=== PATIENT | female | born 1995 | race Two or more races ===

== ENCOUNTER 2017-11-20 10:15 | Emergency (ER) | payer OTHER ==
[2017-11-20] MEDS ORDERED: Sodium Chloride 0.9% 1,000 ML IV ONE (10:42)
[2017-11-20] MEDS ORDERED: Ondansetron 4 MG/2 ML SDV IVPUSH ONE (10:42)
[2017-11-20] MEDS ORDERED: Ketorolac 30 MG/ML SDV IVPUSH ONE (10:42)
--- NOTE | 2017-11-20 10:48 | EDM.PDOC ---
ED HPI GENERAL MEDICAL PROBLEM - General Chief Complaint: Abdominal Pain Stated Complaint: ABDOMINAL PAIN Time Seen by Provider: 11/20/17 10:23 Source of Information: Reports: Patient History Limitations: Reports: No Limitations - History of Present Illness INITIAL COMMENTS - FREE TEXT/NARRATIVE: HISTORY AND PHYSICAL: History of present illness: Patient is a 21-year-old female who presents to the emergency room today with complaints of right lower quadrant pain last night. She states last night it was mild and has progressively gotten more intense. She denies any associated symptoms such as nausea, vomiting, diarrhea or constipation. Last bowel movement this morning, normal. She denies any dysuria. Denies any vaginal bleeding, discharge, lesions or concerns. Last menstrual period was 10/27/2017, dates they have been regular. 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 Denies any chance of . Review of systems: As per history of present illness and below otherwise all systems reviewed and negative. Past medical history: As per history of present illness and as reviewed below otherwise noncontributory. Surgical history: As per history of present illness and as reviewed below otherwise noncontributory. Social history: No reported history of drug or alcohol abuse. Family history: As per history of present illness and as reviewed below otherwise noncontributory. Physical exam: Neural: Well-developed and well-nourished 21-year-old female. Alert and oriented. Nontoxic appearing and in no acute distress. HEENT: Atraumatic, normocephalic, pupils reactive, negative for conjunctival pallor or scleral icterus, mucous membranes moist, throat clear, neck supple, nontender, trachea midline. Lungs: Clear to auscultation, breath sounds equal bilaterally, chest nontender. Heart: S1S2, regular, negative for clicks, rubs, or JVD. Abdomen: Soft, nondistended, mild tenderness to the left lower quadrant with right lower quadrant tenderness with no rebound tenderness. Negative for masses or hepatosplenomegaly. Negative for costovertebral tenderness. Pelvis: Stable nontender. Genitourinary: Deferred. Rectal: Deferred. Extremities: Atraumatic, moves all extremities per self without difficulty or deficits, negative for cords or calf pain. Neurovascular unremarkable. Neuro: Awake, alert, oriented. Cranial nerves II through XII unremarkable. Cerebellum unremarkable. Motor and sensory unremarkable throughout. Exam nonfocal. Diagnostics: CBC, CMP, UA, urine , CT abdomen and pelvis Therapeutics: IV fluid, Zofran, Toradol Impression: Abdominal pain Ovarian Cyst Plan: 1. Please take ibuprofen as directed. Gentle warm heat packs may be beneficial and alleviate discomfort. Zofran 4mg ODT as needed for nausea. Tramadol as needed for severe pain, may cause drowsiness - so do not take while driving or needing to be functioning outside the house. 2. Follow-up with an REWIND OPERATOR for further management. Return to the ED as needed and as discussed. Definitive disposition and diagnosis as appropriate pending reevaluation and review of above. Right Lower Abdominal Pain Score (Numeric/FACES): 8 - Related Data Allergies Allergy/AdvReac Type Severity Reaction Status Date / Time No Known Allergies Allergy Verified 11/20/17 10:36 Home Meds: Home Meds . [No Known Home Meds] 11/20/17 [History] Past Medical History - Past Health History Medical/Surgical History: Denies Medical/Surgical History Social & Family History - Family History Family Medical History: Noncontributory - Tobacco Use Smoking Status *Q: Never Smoker - Recreational Drug Use Recreational Drug Use: No ED ROS GENERAL - Review of Systems Review Of Systems: ROS reveals no pertinent complaints other than HPI. ED EXAM, GI/ABD - Physical Exam Exam: See Below (See dictation) Course - Vital Signs Last Recorded V/S: Last Vital Signs Temp 98.7 F 11/20/17 13:12 Pulse 72 11/20/17 13:12 Resp 16 11/20/17 13:12 BP 121/67 11/20/17 13:12 Pulse Ox 100 11/20/17 13:12 - Orders/Labs/Meds Orders: Active Orders 24 hr Category Date Time Status Abdomen Pelvis w Cont [CT] Stat Exams 11/20/17 10:41 Taken CULTURE URINE [RM] Stat Lab 11/20/17 12:23 Received Labs: Laboratory Tests 11/20/17 11/20/17 11/20/17 Range/Units 10:35 10:35 10:35 WBC 5.21 (4.0-11.0) K/uL RBC 4.27 L (4.30-5.90) M/uL Hgb 13.7 (12.0-16.0) g/dL Hct 40.1 (36.0-46.0) % MCV 93.9 (80.0-98.0) fL MCH 32.1 H (27.0-32.0) pg MCHC 34.2 (31.0-37.0) g/dL RDW Std Deviation 46.2 (28.0-62.0) fl RDW Coeff of Shiva 14 (11.0-15.0) % Plt Count 147 L (150-400) K/uL MPV 10.10 (7.40-12.00) fL Neut % (Auto) 49.5 (48.0-80.0) % Lymph % (Auto) 41.1 H (16.0-40.0) % [place] % (Auto) 6.5 (0.0-15.0) % Eos % (Auto) 2.7 (0.0-7.0) % Baso % (Auto) 0.2 (0.0-1.5) % Neut # (Auto) 2.6 (1.4-5.7) K/uL Lymph # (Auto) 2.1 (0.6-2.4) K/uL [place] # (Auto) 0.3 (0.0-0.8) K/uL Eos # (Auto) 0.1 (0.0-0.7) K/uL Baso # (Auto) 0.0 (0.0-0.1) K/uL Nucleated RBC % 0.0 /100WBC Nucleated RBCs # 0 K/uL Sodium 140 (136-145) mmol/L Potassium 4.0 (3.5-5.1) mmol/L Chloride 108 H (98-107) mmol/L Carbon Dioxide 24.1 (21.0-32.0) mmol/L BUN 13 (7.0-18.0) mg/dL Creatinine 0.7 (0.6-1.0) mg/dL Est Cr Clr Drug Dosing 121.01 mL/min Estimated GFR (MDRD) > 60.0 ml/min Glucose 88 (74-106) mg/dL Calcium 8.7 (8.5-10.1) mg/dL Total Bilirubin 0.5 (0.2-1.0) mg/dL AST 15 (15-37) IU/L ALT 15 (14-63) IU/L Alkaline Phosphatase 59 (46-116) U/L Total Protein 6.8 (6.4-8.2) g/dL Albumin 3.8 (3.4-5.0) g/dL Globulin 3.0 (2.0-3.5) g/dL Albumin/Globulin Ratio 1.3 (1.3-2.8) HCG, Qual NEGATIVE (NEG) Urine Color Urine Appearance Urine pH (5.0-8.0) Ur Specific [place] (1.001-1.035) Urine Protein (NEGATIVE) mg/dL Urine Glucose (UA) (NEGATIVE) mg/dL Urine Ketones (NEGATIVE) mg/dL Urine Occult Blood (NEGATIVE) Urine Nitrite (NEGATIVE) Urine Bilirubin (NEGATIVE) Urine Urobilinogen (<2.0) EU/dL Ur Leukocyte Esterase (NEGATIVE) Urine RBC (0-2/HPF) Urine WBC (0-5/HPF) Ur Epithelial Cells (NONE-FEW) Urine Bacteria (NEGATIVE) 11/20/17 Range/Units 12:23 WBC (4.0-11.0) K/uL RBC (4.30-5.90) M/uL Hgb (12.0-16.0) g/dL Hct (36.0-46.0) % MCV (80.0-98.0) fL MCH (27.0-32.0) pg MCHC (31.0-37.0) g/dL RDW Std Deviation (28.0-62.0) fl RDW Coeff of Shiva (11.0-15.0) % Plt Count (150-400) K/uL MPV (7.40-12.00) fL Neut % (Auto) (48.0-80.0) % Lymph % (Auto) (16.0-40.0) % [place] % (Auto) (0.0-15.0) % Eos % (Auto) (0.0-7.0) % Baso % (Auto) (0.0-1.5) % Neut # (Auto) (1.4-5.7) K/uL Lymph # (Auto) (0.6-2.4) K/uL [place] # (Auto) (0.0-0.8) K/uL Eos # (Auto) (0.0-0.7) K/uL Baso # (Auto) (0.0-0.1) K/uL Nucleated RBC % /100WBC Nucleated RBCs # K/uL Sodium (136-145) mmol/L Potassium (3.5-5.1) mmol/L Chloride (98-107) mmol/L Carbon Dioxide (21.0-32.0) mmol/L BUN (7.0-18.0) mg/dL Creatinine (0.6-1.0) mg/dL Est Cr Clr Drug Dosing mL/min Estimated GFR (MDRD) ml/min Glucose (74-106) mg/dL Calcium (8.5-10.1) mg/dL Total Bilirubin (0.2-1.0) mg/dL AST (15-37) IU/L ALT (14-63) IU/L Alkaline Phosphatase (46-116) U/L Total Protein (6.4-8.2) g/dL Albumin (3.4-5.0) g/dL Globulin (2.0-3.5) g/dL Albumin/Globulin Ratio (1.3-2.8) HCG, Qual (NEG) Urine Color YELLOW Urine Appearance CLEAR Urine pH 7.0 (5.0-8.0) Ur Specific [place] 1.020 (1.001-1.035) Urine Protein NEGATIVE (NEGATIVE) mg/dL Urine Glucose (UA) NEGATIVE (NEGATIVE) mg/dL Urine Ketones NEGATIVE (NEGATIVE) mg/dL Urine Occult Blood NEGATIVE (NEGATIVE) Urine Nitrite NEGATIVE (NEGATIVE) Urine Bilirubin NEGATIVE (NEGATIVE) Urine Urobilinogen 0.2 (<2.0) EU/dL Ur Leukocyte Esterase NEGATIVE (NEGATIVE) Urine RBC 0-1 (0-2/HPF) Urine WBC 0-1 (0-5/HPF) Ur Epithelial Cells FEW (NONE-FEW) Urine Bacteria FEW (NEGATIVE) Meds: Medications Discontinued Medications Generic Name Dose Route Start Last Admin Trade Name Freq PRN Reason Stop Dose Admin Sodium Chloride 1,000 mls @ 999 mls/hr 11/20/17 10:42 11/20/17 11:17 Normal Saline IV 11/20/17 11:42 999 mls/hr STAT ONE Administration Iopamidol 75 ml 11/20/17 12:35 11/20/17 12:36 Isovue Multipack-370 (76%) IVPUSH 11/20/17 12:36 75 ml ONETIME STA Administration Ketorolac Tromethamine 30 mg 11/20/17 10:42 11/20/17 11:22 Toradol IVPUSH 11/20/17 10:43 30 mg ONETIME ONE Administration Ondansetron HCl 4 mg 11/20/17 10:42 11/20/17 11:19 Zofran IVPUSH 11/20/17 10:43 4 mg ONETIME ONE Administration Departure - Departure Time of Disposition: 13:50 Disposition: Home, Self-Care 01 Clinical Impression: Ovarian cyst Qualifiers: Laterality: right Qualified Code(s): N83.201 - Unspecified ovarian cyst, right side - Discharge Information Instructions: Ovarian Cyst, [id number] Referrals: PCP,None [Primary Care Provider] - Forms: ED Department Discharge Additional Instructions: My general discharge The following information is given to patients seen in the emergency department who are being discharged to home. This information is to outline your options for follow-up care. We provide all patients seen in our emergency department with a follow-up referral. The need for follow-up, as well as the timing and circumstances, are variable depending upon the specifics of your emergency department visit. If you don't have a primary care physician on staff, we will provide you with a referral. We always advise you to contact your personal physician following an emergency department visit to inform them of the circumstance of the visit and for follow-up with them and/or the need for any referrals to a consulting specialist. The emergency department will also refer you to a specialist when appropriate. This referral assures that you have the opportunity for follow-up care with a specialist. All of these measure are taken in an effort to provide you with optimal care, which includes your follow-up. Under all circumstances we always encourage you to contact your private physician who remains a resource for coordinating your care. When calling for follow-up care, please make the office aware that this follow-up is from your recent emergency room visit. If for any reason you are refused follow-up, please contact the [facility] Emergency Department at and asked to speak to the emergency department charge nurse. [facility] Primary Care - Women's Health [address] [place] [id number] [facility] [address] [place] [address] . Please take ibuprofen as directed. Gentle warm heat packs may be beneficial and alleviate discomfort. Zofran 4mg ODT as needed for nausea. Tramadol as needed for severe pain, may cause drowsiness - so do not take while driving or needing to be functioning outside the house. 2. Follow-up with an REWIND OPERATOR for further management. Return to the ED as needed and as discussed. - My Orders Last 24 Hours: My Active Orders 11/20/17 10:41 Abdomen Pelvis w Cont [CT] Stat 11/20/17 12:23 CULTURE URINE [RM] Stat - Assessment/Plan Last 24 Hours: My Active Orders 11/20/17 10:41 Abdomen Pelvis w Cont [CT] Stat 11/20/17 12:23 CULTURE URINE [RM] Stat
[2017-11-20 11:21] LABS: CHLORIDE,CL 108 mmol/L (98-107); SODIUM,NA 140 mmol/L (136-145)
[2017-11-20] MEDS ORDERED: Iopamidol 755 MG/ML 500 ML Multipack Bottle IVPUSH STA (12:35)
--- NOTE | 2017-11-20 14:17 | CT ---
EXAM DATE: 11/20/17 PATIENT'S AGE: 21 Patient: GAMA JIN Facility: [place], [place] Site . Site : 1995 Study: CT Abdomen/Pelvis [id number]/[id number] 12:41:21 PM Ordering Physician: Doctor Woodward Final Report: INDICATION: abd pain HISTORY: Abdominal pain. COMPARISON: None. TECHNIQUE: CT of the abdomen and pelvis. 75 cc of Isovue-370 IV. Coronal/sagittal reconstruction images. FINDINGS: Lung bases: There is no pleural or pericardial effusion. The heart size is normal. There is respiratory motion artifact, which limits image quality at the lung bases. There is no basilar pneumothorax. Abdomen/pelvis: Motion artifact also limits image quality in the abdomen. There is no solid hepatic mass. The hepatic morphology is normal. There is no dilation of intrahepatic biliary radicals. Spleen size is normal. No hydronephrosis. No perinephric edema. No adrenal mass. No pancreatic mass or pancreatic duct dilation. Urinary bladder is normal. There is a low-density right adnexal mass, which measures 3.5 cm in dimension. This is most likely an intra-ovarian follicular cyst, but is indeterminate. If there is concern, ultrasound may be obtained to further assess. There is a moderate amount of colonic fecal material. There is no transition point to indicate a mechanical small bowel or colonic obstruction. Questionable visualization of the appendix on series 201, image 76. No secondary signs for appendicitis. No appendicolith or wall thickening within the cecum. No abdominal aortic aneurysm. The visceral artery branches are patent. There is no adenopathy by size criteria in the pelvis, retroperitoneum, gastrohepatic ligament. The bone windows demonstrate no lytic or blastic bone lesions. The alignment is preserved. On sagittal reconstruction images, vertebral body heights alignment are maintained. IMPRESSION: 1. Significant patient motion artifact limits the image quality. 2. Questionable appendiceal visualization. There are no secondary signs for appendicitis. No cecal wall thickening or calcified appendicolith. 3. Suspected right intra-ovarian follicular cyst. Trace amount of free fluid in the pelvis. This may be confirmed with ultrasonography. 4. Report called to Dr. Jenkins, emergency department, 11/20/2017, 1336 hours. Dictated by Tristian Chance MD @ 11/20/2017 1:36:56 PM Dictated by: Tristian Chance MD @ 11/20/2017 13:37:06 (Electronic Signature) Report Signed by Proxy. KLEVER
== END 2017-11-20 14:10 | disposition home or self-care (01) ==
LOC: MW.ED 10:15
DX: N83.201 Unspecified ovarian cyst, right side (principal)
CPT/HCPCS: 36415; 74177; 80053; 81001; 84703; 85025; 87086; 96361; 96374; 96375; 99284; J1885; J2405; J7040; Q9967; 99283

== ENCOUNTER 2017-11-30 12:13 | Emergency (ER) | payer OTHER ==
--- NOTE | 2017-11-30 12:18 | EDM.PDOC ---
ED HPI GENERAL MEDICAL PROBLEM - General Stated Complaint: ABD PAIN Time Seen by Provider: 11/30/17 12:17 Source of Information: Reports: Patient History Limitations: Reports: No Limitations - History of Present Illness INITIAL COMMENTS - FREE TEXT/NARRATIVE: HISTORY AND PHYSICAL: History of present illness: [. Patient is a 21-year-old female here with abdominal pain 10 days. She was seen in the ED 10 day ago for right lower abdominal pain found to have a right ovarian cyst on CT scan. She states that she started her menstrual cycle today, she is not having diffuse lower abdominal pain. She denies any fevers, nausea, vomiting, diarrhea, bowel movements have been normal.] Review of systems: As per history of present illness and below otherwise all systems reviewed and negative. Past medical history: As per history of present illness and as reviewed below otherwise noncontributory. Surgical history: As per history of present illness and as reviewed below otherwise noncontributory. Social history: No reported history of drug or alcohol abuse. Family history: As per history of present illness and as reviewed below otherwise noncontributory. Physical exam: HEENT: Atraumatic, normocephalic, pupils reactive, negative for conjunctival pallor or scleral icterus, mucous membranes moist, throat clear, neck supple, nontender, trachea midline. Lungs: Clear to auscultation, breath sounds equal bilaterally, chest nontender. Heart: S1S2, regular, negative for clicks, rubs, or JVD. Abdomen: Soft, nondistended, moderate tenderness to palpation of lower abdomen. Negative obturator and psoas sign. Negative for masses or hepatosplenomegaly. Negative for costovertebral tenderness. Pelvis: Stable nontender. Genitourinary: Deferred. Rectal: Deferred. Extremities: Atraumatic, negative for cords or calf pain. Neurovascular unremarkable. Neuro: Awake, alert, oriented. Cranial nerves II through XII unremarkable. Cerebellum unremarkable. Motor and sensory unremarkable throughout. Exam nonfocal. Notes: 11/20/2017 she was evaluated in the ED for abdominal pain. She was diagnosed with an ovarian cyst and given a prescription for Zofran and tramadol. Patient reported pain 9/10, Toradol given. Pain 3/10 after Toradol. Diagnostics: [CBC, CMP, UA, urine hCG, pelvic ultrasound Therapeutics: [Normal saline IV Toradol 30 mg IV] Impression: [Dysmenorrhea] Plan: CBC and CMP are unremarkable. Urine hCG is negative. UA is unremarkable for urinary tract infection, hematuria present due to patient currently being on her menstrual cycle. Pelvic ultrasound is unremarkable for ovarian cyst. [#1 Take ibuprofen as needed as discussed for menstrual cramping. #2 follow-up with your SPANISHER. #3 return to ED as needed as discussed] Definitive disposition and diagnosis as appropriate pending reevaluation and review of above. Right Middle Abdomen Pain Score (Numeric/FACES): 10 - Related Data Allergies Allergy/AdvReac Type Severity Reaction Status Date / Time No Known Allergies Allergy Verified 11/20/17 10:36 Home Meds: Home Meds traMADol HCl [Tramadol HCl] 50 mg PO Q4H PRN 11/30/17 [History] Past Medical History - Past Health History Medical/Surgical History: Denies Medical/Surgical History Social & Family History - Family History Family Medical History: Noncontributory - Tobacco Use Smoking Status *Q: Never Smoker - Recreational Drug Use Recreational Drug Use: No ED ROS GENERAL - Review of Systems Review Of Systems: ROS reveals no pertinent complaints other than HPI. ED EXAM, GI/ABD - Physical Exam Exam: See Below (See dictation) Course - Vital Signs Last Recorded V/S: Last Vital Signs Temp 36.8 C 11/30/17 12:31 Pulse 67 11/30/17 13:00 Resp 18 11/30/17 13:00 BP 97/52 L 11/30/17 13:00 Pulse Ox 98 11/30/17 13:00 - Orders/Labs/Meds Orders: Active Orders 24 hr Category Date Time Status Abdomen Ltd [US] Stat Exams 11/30/17 12:24 Taken Pelvis Non OB Ltd [US] Stat Exams 11/30/17 12:26 Taken HCG QUALITATIVE,URINE [URCHEM] Stat Lab 11/30/17 12:50 Ordered UA W/MICROSCOPIC [URIN] Stat Lab 11/30/17 12:50 Ordered Labs: Laboratory Tests 11/30/17 11/30/17 11/30/17 Range/Units 12:33 12:33 12:50 WBC 4.86 (4.0-11.0) K/uL RBC 4.22 L (4.30-5.90) M/uL Hgb 13.2 (12.0-16.0) g/dL Hct 39.8 (36.0-46.0) % MCV 94.3 (80.0-98.0) fL MCH 31.3 (27.0-32.0) pg MCHC 33.2 (31.0-37.0) g/dL RDW Std Deviation 45.5 (28.0-62.0) fl RDW Coeff of Shiva 13 (11.0-15.0) % Plt Count 124 L (150-400) K/uL MPV 10.00 (7.40-12.00) fL Neut % (Auto) 60.6 (48.0-80.0) % Lymph % (Auto) 30.7 (16.0-40.0) % [place] % (Auto) 6.4 (0.0-15.0) % Eos % (Auto) 2.1 (0.0-7.0) % Baso % (Auto) 0.2 (0.0-1.5) % Neut # (Auto) 3.0 (1.4-5.7) K/uL Lymph # (Auto) 1.5 (0.6-2.4) K/uL [place] # (Auto) 0.3 (0.0-0.8) K/uL Eos # (Auto) 0.1 (0.0-0.7) K/uL Baso # (Auto) 0.0 (0.0-0.1) K/uL Nucleated RBC % 0.0 /100WBC Nucleated RBCs # 0 K/uL Sodium 142 (136-145) mmol/L Potassium 3.9 (3.5-5.1) mmol/L Chloride 107 (98-107) mmol/L Carbon Dioxide 27.0 (21.0-32.0) mmol/L BUN 13 (7.0-18.0) mg/dL Creatinine 0.8 (0.6-1.0) mg/dL Est Cr Clr Drug Dosing 101.78 mL/min Estimated GFR (MDRD) > 60.0 ml/min Glucose 81 (74-106) mg/dL Calcium 8.5 (8.5-10.1) mg/dL Total Bilirubin 0.8 (0.2-1.0) mg/dL AST 15 (15-37) IU/L ALT 17 (14-63) IU/L Alkaline Phosphatase 46 (46-116) U/L Total Protein 6.6 (6.4-8.2) g/dL Albumin 3.7 (3.4-5.0) g/dL Globulin 2.9 (2.0-3.5) g/dL Albumin/Globulin Ratio 1.3 (1.3-2.8) Lipase 104 (73-393) U/L Urine Color DARK YELLOW Urine Appearance CLOUDY Urine pH 7.0 (5.0-8.0) Ur Specific [place] 1.020 (1.001-1.035) Urine Protein TRACE (NEGATIVE) mg/dL Urine Glucose (UA) NEGATIVE (NEGATIVE) mg/dL Urine Ketones NEGATIVE (NEGATIVE) mg/dL Urine Occult Blood LARGE H (NEGATIVE) Urine Nitrite NEGATIVE (NEGATIVE) Urine Bilirubin NEGATIVE (NEGATIVE) Urine Urobilinogen 0.2 (<2.0) EU/dL Ur Leukocyte Esterase NEGATIVE (NEGATIVE) Urine RBC TOO NUMBEROUS TO CT H (0-2/HPF) Urine WBC 0-2 (0-5/HPF) Ur Epithelial Cells FEW (NONE-FEW) Amorphous Sediment RARE (NEGATIVE) Urine Bacteria RARE (NEGATIVE) Urine HCG, Qual (NEGATIVE) 11/30/17 Range/Units 12:50 WBC (4.0-11.0) K/uL RBC (4.30-5.90) M/uL Hgb (12.0-16.0) g/dL Hct (36.0-46.0) % MCV (80.0-98.0) fL MCH (27.0-32.0) pg MCHC (31.0-37.0) g/dL RDW Std Deviation (28.0-62.0) fl RDW Coeff of Shiva (11.0-15.0) % Plt Count (150-400) K/uL MPV (7.40-12.00) fL Neut % (Auto) (48.0-80.0) % Lymph % (Auto) (16.0-40.0) % [place] % (Auto) (0.0-15.0) % Eos % (Auto) (0.0-7.0) % Baso % (Auto) (0.0-1.5) % Neut # (Auto) (1.4-5.7) K/uL Lymph # (Auto) (0.6-2.4) K/uL [place] # (Auto) (0.0-0.8) K/uL Eos # (Auto) (0.0-0.7) K/uL Baso # (Auto) (0.0-0.1) K/uL Nucleated RBC % /100WBC Nucleated RBCs # K/uL Sodium (136-145) mmol/L Potassium (3.5-5.1) mmol/L Chloride (98-107) mmol/L Carbon Dioxide (21.0-32.0) mmol/L BUN (7.0-18.0) mg/dL Creatinine (0.6-1.0) mg/dL Est Cr Clr Drug Dosing mL/min Estimated GFR (MDRD) ml/min Glucose (74-106) mg/dL Calcium (8.5-10.1) mg/dL Total Bilirubin (0.2-1.0) mg/dL AST (15-37) IU/L ALT (14-63) IU/L Alkaline Phosphatase (46-116) U/L Total Protein (6.4-8.2) g/dL Albumin (3.4-5.0) g/dL Globulin (2.0-3.5) g/dL Albumin/Globulin Ratio (1.3-2.8) Lipase (73-393) U/L Urine Color Urine Appearance Urine pH (5.0-8.0) Ur Specific [place] (1.001-1.035) Urine Protein (NEGATIVE) mg/dL Urine Glucose (UA) (NEGATIVE) mg/dL Urine Ketones (NEGATIVE) mg/dL Urine Occult Blood (NEGATIVE) Urine Nitrite (NEGATIVE) Urine Bilirubin (NEGATIVE) Urine Urobilinogen (<2.0) EU/dL Ur Leukocyte Esterase (NEGATIVE) Urine RBC (0-2/HPF) Urine WBC (0-5/HPF) Ur Epithelial Cells (NONE-FEW) Amorphous Sediment (NEGATIVE) Urine Bacteria (NEGATIVE) Urine HCG, Qual NEGATIVE (NEGATIVE) Meds: Medications Discontinued Medications Generic Name Dose Route Start Last Admin Trade Name Freq PRN Reason Stop Dose Admin Sodium Chloride 1,000 mls @ 999 mls/hr 11/30/17 12:26 11/30/17 13:01 Normal Saline IV 11/30/17 13:26 999 mls/hr STAT ONE Administration Ketorolac Tromethamine 30 mg 11/30/17 13:35 11/30/17 13:44 Toradol IM 11/30/17 13:36 Not Given ONETIME ONE Ketorolac Tromethamine 30 mg 11/30/17 13:37 11/30/17 13:43 Toradol IVPUSH 11/30/17 13:38 30 mg ONETIME ONE Administration Departure - Departure Time of Disposition: 14:02 Disposition: Home, Self-Care 01 Condition: Good Clinical Impression: Dysmenorrhea - Discharge Information Referrals: PCP,None [Primary Care Provider] - Additional Instructions: The following information is given to patients seen in the emergency department who are being discharged to home. This information is to outline your options for follow-up care. We provide all patients seen in our emergency department with a follow-up referral. The need for follow-up, as well as the timing and circumstances, are variable depending upon the specifics of your emergency department visit. If you don't have a primary care physician on staff, we will provide you with a referral. We always advise you to contact your personal physician following an emergency department visit to inform them of the circumstance of the visit and for follow-up with them and/or the need for any referrals to a consulting specialist. The emergency department will also refer you to a specialist when appropriate. This referral assures that you have the opportunity for follow-up care with a specialist. All of these measure are taken in an effort to provide you with optimal care, which includes your follow-up. Under all circumstances we always encourage you to contact your private physician who remains a resource for coordinating your care. When calling for follow-up care, please make the office aware that this follow-up is from your recent emergency room visit. If for any reason you are refused follow-up, please contact the [facility] Emergency Department at and asked to speak to the emergency department charge nurse. [facility] Primary Care [address] [place] [id number] #1 Take ibuprofen as needed as discussed for menstrual cramping. #2 follow-up with your SPANISHER. #3 return to ED as needed as discussed - My Orders Last 24 Hours: My Active Orders 11/30/17 12:24 Abdomen Ltd [US] Stat 11/30/17 12:26 Pelvis Non OB Ltd [US] Stat 11/30/17 12:50 HCG QUALITATIVE,URINE [URCHEM] Stat UA W/MICROSCOPIC [URIN] Stat - Assessment/Plan Last 24 Hours: My Active Orders 11/30/17 12:24 Abdomen Ltd [US] Stat 11/30/17 12:26 Pelvis Non OB Ltd [US] Stat 11/30/17 12:50 HCG QUALITATIVE,URINE [URCHEM] Stat UA W/MICROSCOPIC [URIN] Stat
[2017-11-30] MEDS ORDERED: Sodium Chloride 0.9% 1,000 ML IV ONE (12:26)
[2017-11-30 12:58] LABS: CHLORIDE,CL 107 mmol/L (98-107); SODIUM,NA 142 mmol/L (136-145)
[2017-11-30] MEDS ORDERED: Ketorolac 30 MG/ML SDV IM ONE (13:35)
[2017-11-30] MEDS ORDERED: Ketorolac 30 MG/ML SDV IVPUSH ONE (13:37)
--- NOTE | 2017-12-02 11:13 | US ---
EXAM DATE: 11/30/17 PATIENT'S AGE: 21 Patient: GAMA JIN Facility: [place], [place] Site . Site : 1997 Study: US Pelvis Bilateral -11/30/2017 1:42:21 PM Ordering Physician: Adarsh Herrera Final Report: INDICATION: Pelvic pain during menses; rule out appendicitis . Comparison: None. TECHNIQUE: Transabdominal pelvic ultrasound. FINDINGS: The uterus is measuring 8.6 x 3.8 x 4.6 cm. The right ovary is measuring 3.9 x 2.5 x 3.2 cm and the left ovary is measuring 3.6 x 2.7 x 2.8 cm. Endometrial stripe is measuring 8 mm in thickness with uniform and homogeneous echotexture. No free fluid in the cul-de-sac. The appendix is not clearly visualized in the right lower quadrant of the abdomen secondary to increased bowel peristalsis and body habitus. IMPRESSION: 1. Negative pelvic ultrasound. 2. The appendix is not clearly visualized. Dictated by Quincy Lopez MD @ Nov 30 2017 1:51PM (Electronic Signature) Report Signed by Proxy. KLEVER
--- NOTE | 2017-12-02 11:14 | US ---
EXAM DATE: 11/30/17 PATIENT'S AGE: 21 Patient: GAMA JIN Facility: [place], [place] Site . Site : 1997 Study: US Pelvis Bilateral -11/30/2017 1:42:21 PM Ordering Physician: Adarsh Herrera Final Report: INDICATION: Pelvic pain during menses; rule out appendicitis . Comparison: None. TECHNIQUE: Transabdominal pelvic ultrasound. FINDINGS: The uterus is measuring 8.6 x 3.8 x 4.6 cm. The right ovary is measuring 3.9 x 2.5 x 3.2 cm and the left ovary is measuring 3.6 x 2.7 x 2.8 cm. Endometrial stripe is measuring 8 mm in thickness with uniform and homogeneous echotexture. No free fluid in the cul-de-sac. The appendix is not clearly visualized in the right lower quadrant of the abdomen secondary to increased bowel peristalsis and body habitus. IMPRESSION: 1. Negative pelvic ultrasound. 2. The appendix is not clearly visualized. Dictated by Quincy Lopez MD @ Nov 30 2017 1:51PM (Electronic Signature) Report Signed by Proxy. KLEVER
== END 2017-11-30 14:15 | disposition home or self-care (01) ==
LOC: MW.ED 12:13
DX: N94.6 Dysmenorrhea, unspecified (principal)
CPT/HCPCS: 36415; 76705; 76857; 80053; 81001; 81025; 83690; 85025; 96361; 96374; 99284; J1885; J7040; 99283

== ENCOUNTER 2018-01-01 15:26 | Emergency (ER) | payer OTHER ==
[2018-01-01] MEDS ORDERED: Sodium Chloride 0.9% 1,000 ML IV ONE (15:46)
[2018-01-01] MEDS ORDERED: Ketorolac 30 MG/ML SDV IVPUSH ONE (15:46)
--- NOTE | 2018-01-01 16:01 | EDM.PDOC ---
ED HPI GENERAL MEDICAL PROBLEM - General Chief Complaint: Syncope Stated Complaint: DIZZY Time Seen by Provider: 01/01/18 15:46 Source of Information: Reports: Patient History Limitations: Reports: No Limitations - History of Present Illness INITIAL COMMENTS - FREE TEXT/NARRATIVE: HISTORY AND PHYSICAL: History of present illness: Patient is a 22-year-old female who presents to the emergency room with complaints of dizziness, syncopal event and abdominal pain. This has been an ongoing intermittent problem for the last several months and seems to be correlated with her menstrual period. He states she started menses this morning. Had feelings of weakness and dizziness along with abdominal cramping. States she was trying to go on with her day when she "passed out". Denies hitting her head or any injury related to this. Concerned as today's abdominal pain is worse that normal. She denies any fever, chills, chest pain, shortness of breath or cough. Denies any nausea, vomiting, diarrhea or constipation. Review of systems: As per history of present illness and below otherwise all systems reviewed and negative. Past medical history: As per history of present illness and as reviewed below otherwise noncontributory. Surgical history: As per history of present illness and as reviewed below otherwise noncontributory. Social history: No reported history of drug or alcohol abuse. Family history: As per history of present illness and as reviewed below otherwise noncontributory. Physical exam: General: All developed and well-nourished 22-year-old female. Alert and oriented. Nontoxic appearing and in no acute distress. HEENT: Atraumatic, normocephalic, pupils equal and reactive bilaterally, negative for conjunctival pallor or scleral icterus, mucous membranes moist, throat clear, neck supple, nontender, trachea midline. No drooling or trismus noted. No meningeal signs Lungs: Clear to auscultation, breath sounds equal bilaterally, chest nontender. Heart: S1S2, regular rate and rhythm without overt murmur Abdomen: Soft, nondistended, low abdominal pain and tenderness with palpation. Negative for masses or hepatosplenomegaly. Negative for costovertebral tenderness. Pelvis: Stable nontender. Genitourinary: Deferred. Rectal: Deferred. Skin: Intact, warm, dry. No lesions or rashes noted. Extremities: Atraumatic, negative for cords or calf pain. Neurovascular unremarkable. Neuro: Awake, alert, oriented. Cranial nerves II through XII unremarkable. Cerebellum unremarkable. Motor and sensory unremarkable throughout. Exam nonfocal. Notes: Patient was seen in the ER on 11/20 and 11/30/2017 for similar complaints: had labs and CT abdomen/pelvis and then a pelvic U/S. these were normal. She was encouraged to follow-up with an MANAGER LEAN. She states she did see a provider at the clinic who told her she was anemic. Lab work is unremarkable. I'm still waiting for the CT scan of the abdomen results. Patient is requesting that she be discharged to home. I did inform her of the pending CT results she would like to sign out AMA. Are stable. She is aware of risks of leaving prior to all results being returned. CT shows no acute abnormality area and moderate amount of stool. Nonspecific prominence of the intrahepatic biliary system. Diagnostics: CBC, CMP, UA, urine on the EKG, orthostatic vital signs Therapeutics: IV fluid, Toradol Impression: Abdominal pain Plan: Patient left AGAINST MEDICAL ADVICE prior to receiving all her diagnostic results. Definitive disposition and diagnosis as appropriate pending reevaluation and review of above. 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 [No Known Home Meds] 01/01/18 [History] Past Medical History - Past Health History Medical/Surgical History: Denies Medical/Surgical History Hematologic History: Reports: Anemia Social & Family History - Family History Family Medical History: Noncontributory - Tobacco Use Smoking Status *Q: Never Smoker Second Hand Smoke Exposure: No - Caffeine Use Caffeine Use: Reports: None - Recreational Drug Use Recreational Drug Use: No ED ROS GENERAL - Review of Systems Review Of Systems: ROS reveals no pertinent complaints other than HPI. ED EXAM, GENERAL - Physical Exam Exam: See Below (See dictation) Course - Vital Signs Last Recorded V/S: Last Vital Signs Temp 97.9 F 01/01/18 15:40 Pulse 71 01/01/18 17:13 Resp 15 05/02/18 17:13 BP 96/54 L 05/02/18 17:13 Pulse Ox 99 01/01/18 17:13 Orthostatic Blood Pressure [ 107/69 Standing] Orthostatic Blood Pressure [ 95/66 Sitting] Orthostatic Blood Pressure [ 99/58 Supine] - Orders/Labs/Meds Orders: Active Orders 24 hr Category Date Time Status Orthostatic Vital Signs [RC] ASDIRECTED Care 01/01/18 15:46 Active Abdomen Pelvis w Cont [CT] Stat Exams 01/01/18 16:02 Taken UA W/MICROSCOPIC [URIN] Stat Lab 01/01/18 17:40 Ordered Labs: Laboratory Tests 01/01/18 01/01/18 01/01/18 Range/Units 16:02 16:02 16:43 WBC 5.98 (4.0-11.0) K/uL RBC 3.95 L (4.30-5.90) M/uL Hgb 12.6 (12.0-16.0) g/dL Hct 36.7 (36.0-46.0) % MCV 92.9 (80.0-98.0) fL MCH 31.9 (27.0-32.0) pg MCHC 34.3 (31.0-37.0) g/dL RDW Std Deviation 43.6 (28.0-62.0) fl RDW Coeff of Shiva 13 (11.0-15.0) % Plt Count 132 L (150-400) K/uL MPV 9.90 (7.40-12.00) fL Neut % (Auto) 64.0 (48.0-80.0) % Lymph % (Auto) 28.3 (16.0-40.0) % [place] % (Auto) 6.5 (0.0-15.0) % Eos % (Auto) 1.0 (0.0-7.0) % Baso % (Auto) 0.2 (0.0-1.5) % Neut # (Auto) 3.8 (1.4-5.7) K/uL Lymph # (Auto) 1.7 (0.6-2.4) K/uL [place] # (Auto) 0.4 (0.0-0.8) K/uL Eos # (Auto) 0.1 (0.0-0.7) K/uL Baso # (Auto) 0.0 (0.0-0.1) K/uL Nucleated RBC % 0.0 /100WBC Nucleated RBCs # 0 K/uL Sodium 140 (136-145) mmol/L Potassium 3.9 (3.5-5.1) mmol/L Chloride 107 (98-107) mmol/L Carbon Dioxide 24.4 (21.0-32.0) mmol/L BUN 14 (7.0-18.0) mg/dL Creatinine 0.8 (0.6-1.0) mg/dL Est Cr Clr Drug Dosing 105.01 mL/min Estimated GFR (MDRD) > 60.0 ml/min Glucose 113 H (74-106) mg/dL Calcium 8.4 L (8.5-10.1) mg/dL Total Bilirubin 0.6 (0.2-1.0) mg/dL AST 15 (15-37) IU/L ALT 15 (14-63) IU/L Alkaline Phosphatase 44 L (46-116) U/L Total Protein 6.8 (6.4-8.2) g/dL Albumin 3.7 (3.4-5.0) g/dL Globulin 3.1 (2.0-3.5) g/dL Albumin/Globulin Ratio 1.2 L (1.3-2.8) HCG, Qual NEGATIVE (NEG) Urine Color Urine Appearance Urine pH (5.0-8.0) Ur Specific [place] (1.001-1.035) Urine Protein (NEGATIVE) mg/dL Urine Glucose (UA) (NEGATIVE) mg/dL Urine Ketones (NEGATIVE) mg/dL Urine Occult Blood (NEGATIVE) Urine Nitrite (NEGATIVE) Urine Bilirubin (NEGATIVE) Urine Urobilinogen (<2.0) EU/dL Ur Leukocyte Esterase (NEGATIVE) Urine RBC (0-2/HPF) Urine WBC (0-5/HPF) Ur Epithelial Cells (NONE-FEW) Urine Bacteria (NEGATIVE) 01/01/18 Range/Units 17:40 WBC (4.0-11.0) K/uL RBC (4.30-5.90) M/uL Hgb (12.0-16.0) g/dL Hct (36.0-46.0) % MCV (80.0-98.0) fL MCH (27.0-32.0) pg MCHC (31.0-37.0) g/dL RDW Std Deviation (28.0-62.0) fl RDW Coeff of Shiva (11.0-15.0) % Plt Count (150-400) K/uL MPV (7.40-12.00) fL Neut % (Auto) (48.0-80.0) % Lymph % (Auto) (16.0-40.0) % [place] % (Auto) (0.0-15.0) % Eos % (Auto) (0.0-7.0) % Baso % (Auto) (0.0-1.5) % Neut # (Auto) (1.4-5.7) K/uL Lymph # (Auto) (0.6-2.4) K/uL [place] # (Auto) (0.0-0.8) K/uL Eos # (Auto) (0.0-0.7) K/uL Baso # (Auto) (0.0-0.1) K/uL Nucleated RBC % /100WBC Nucleated RBCs # K/uL Sodium (136-145) mmol/L Potassium (3.5-5.1) mmol/L Chloride (98-107) mmol/L Carbon Dioxide (21.0-32.0) mmol/L BUN (7.0-18.0) mg/dL Creatinine (0.6-1.0) mg/dL Est Cr Clr Drug Dosing mL/min Estimated GFR (MDRD) ml/min Glucose (74-106) mg/dL Calcium (8.5-10.1) mg/dL Total Bilirubin (0.2-1.0) mg/dL AST (15-37) IU/L ALT (14-63) IU/L Alkaline Phosphatase (46-116) U/L Total Protein (6.4-8.2) g/dL Albumin (3.4-5.0) g/dL Globulin (2.0-3.5) g/dL Albumin/Globulin Ratio (1.3-2.8) HCG, Qual (NEG) Urine Color RED Urine Appearance SLT CLOUDY Urine pH 6.0 (5.0-8.0) Ur Specific [place] 1.015 (1.001-1.035) Urine Protein 30 (NEGATIVE) mg/dL Urine Glucose (UA) NEGATIVE (NEGATIVE) mg/dL Urine Ketones NEGATIVE (NEGATIVE) mg/dL Urine Occult Blood LARGE H (NEGATIVE) Urine Nitrite NEGATIVE (NEGATIVE) Urine Bilirubin NEGATIVE (NEGATIVE) Urine Urobilinogen 0.2 (<2.0) EU/dL Ur Leukocyte Esterase TRACE (NEGATIVE) Urine RBC TOO NUMBER (0-2/HPF) Urine WBC 2-4 (0-5/HPF) Ur Epithelial Cells OCCASIONAL (NONE-FEW) Urine Bacteria FEW (NEGATIVE) Meds: Medications Discontinued Medications Generic Name Dose Route Start Last Admin Trade Name Halima PRN Reason Stop Dose Admin Sodium Chloride 1,000 mls @ 999 mls/hr 01/01/18 15:46 01/01/18 15:54 Normal Saline IV 01/01/18 16:46 999 mls/hr STAT ONE Administration Iopamidol 100 ml 01/01/18 17:55 01/01/18 17:56 Isovue Multipack-370 (76%) IVPUSH 01/01/18 17:56 100 ml ONETIME STA Administration Ketorolac Tromethamine 30 mg 01/01/18 15:46 01/01/18 15:54 Toradol IVPUSH 01/01/18 15:47 30 mg ONETIME ONE Administration Departure - Departure Time of Disposition: 18:45 Disposition: Against Medical Advice 07 Clinical Impression: Abdominal pain Qualifiers: Abdominal location: lower abdomen, unspecified Qualified Code(s): R10.30 - Lower abdominal pain, unspecified - Discharge Information Referrals: PCP,None [Primary Care Provider] - Forms: ED Department Discharge - My Orders Last 24 Hours: My Active Orders 01/01/18 15:46 Orthostatic Vital Signs [RC] ASDIRECTED 01/01/18 16:02 Abdomen Pelvis w Cont [CT] Stat 01/01/18 17:40 UA W/MICROSCOPIC [URIN] Stat - Assessment/Plan Last 24 Hours: My Active Orders 01/01/18 15:46 Orthostatic Vital Signs [RC] ASDIRECTED 01/01/18 16:02 Abdomen Pelvis w Cont [CT] Stat 01/01/18 17:40 UA W/MICROSCOPIC [URIN] Stat
[2018-01-01 16:28] LABS: CHLORIDE,CL 107 mmol/L (98-107); SODIUM,NA 140 mmol/L (136-145)
[2018-01-01] MEDS ORDERED: Iopamidol 755 MG/ML 500 ML Multipack Bottle IVPUSH STA (17:55)
--- NOTE | 2018-01-02 09:49 | CT ---
EXAM DATE: 01/01/18 PATIENT'S AGE: 22 Patient: GAMA JIN Facility: [place], [place] Site . Site : 1995 Study: CT Abdomen/Pelvis [id number]/2/2018 5:47:48 PM Ordering Physician: Doctor Woodward Final Report: INDICATION: abd pain TECHNIQUE: CT abdomen and pelvis acquired with IV contrast. Evaluation degraded by motion artifact. COMPARISON: None FINDINGS: Lower chest: Unremarkable. Liver: Nonspecific hepatomegaly. Focal fatty infiltration adjacent to the falciform ligament. Spleen: Unremarkable. Pancreas: Unremarkable. Gallbladder and bile ducts: Prominence of the intrahepatic biliary system. This is nonspecific. Kidneys: Unremarkable. Adrenal glands: Unremarkable. GI tract: Moderate amount of stool. Appendix is normal. Vascular structures: Negative. No sign of aneurysm. Lymph nodes: Unremarkable. Miscellaneous: Unremarkable. No free air or significant free fluid. Pelvic Organs: Unremarkable. Bones: Unremarkable for age. IMPRESSION: 1. No acute abnormality of the abdomen and pelvis. Moderate amount of stool. 2. Nonspecific prominence of the intrahepatic biliary system. 3. Nonspecific hepatomegaly. Dictated by Shyam Eugene MD @ 01/01/2018 6:27:38 PM Dictated by: Shyam Eugene MD @ 01/01/2018 18:27:53 (Electronic Signature) Report Signed by Proxy. [facility]FF[facility] PSYCHIATRIC CENTERJennifer
== END 2018-01-01 18:40 | disposition left against medical advice (07) ==
LOC: MW.ED 15:26
DX: R10.30 Lower abdominal pain, unspecified (principal); Z53.21 Procedure and treatment not carried out due to patient leaving prior to being seen by health care provider
CPT/HCPCS: 36415; 74177; 80053; 81001; 84703; 85025; 93005; 96361; 96374; 99284; J1885; J7040; Q9967

== ENCOUNTER 2018-03-25 09:12 | Emergency (ER) | payer SELFPAY ==
[2018-03-25] MEDS ORDERED: Sodium Chloride 0.9% 1,000 ML IV ONE (09:29)
[2018-03-25] MEDS ORDERED: Ketorolac 30 MG/ML SDV IVPUSH ONE (09:29)
--- NOTE | 2018-03-25 09:33 | EDM.PDOC ---
ED HPI GENERAL MEDICAL PROBLEM - General Chief Complaint: Abdominal Pain Stated Complaint: ABDOMINAL PAIN Time Seen by Provider: 03/25/18 09:22 - History of Present Illness INITIAL COMMENTS - FREE TEXT/NARRATIVE: HISTORY AND PHYSICAL: History of present illness: Patient's a 22-year-old female with history of ovarian cyst and dysmenorrhea who presents with a concern of lower abdominal pain and cramping with the onset of her. Currently she denies vaginal discharge or irregular bleeding denies fever chills nausea vomiting states this started this a.m. Denies Trauma denies history of STD Review of systems: As per history of present illness and below otherwise all systems reviewed and negative. Past medical history: As per history of present illness and as reviewed below otherwise noncontributory. Surgical history: As per history of present illness and as reviewed below otherwise noncontributory. Social history: No reported history of drug or alcohol abuse. Family history: As per history of present illness and as reviewed below otherwise noncontributory. Physical exam: HEENT: Atraumatic, normocephalic, pupils reactive, negative for conjunctival pallor or scleral icterus, mucous membranes moist, throat clear, neck supple, nontender, trachea midline. Lungs: Clear to auscultation, breath sounds equal bilaterally, chest nontender. Heart: S1S2, regular, negative for clicks, rubs, or JVD. Abdomen: Soft, nondistended, no localized tenderness Negative for masses or hepatosplenomegaly. Negative for costovertebral tenderness. Pelvis: Stable nontender. Genitourinary: Deferred. Rectal: Deferred. Extremities: Atraumatic, negative for cords or calf pain. Neurovascular unremarkable. Neuro: Awake, alert, oriented. Cranial nerves II through XII unremarkable. Cerebellum unremarkable. Motor and sensory unremarkable throughout. Exam nonfocal. Diagnostics: CBC CMP UA hCG pelvic ultrasound right lower quadrant ultrasound Therapeutics: Saline 1 L bolus and Toradol 30 mg IV Impression: #1 lower abdominal pain #2 history of dysmenorrhea #3 history of ovarian cyst Definitive disposition and diagnosis as appropriate pending reevaluation and review of above. Lower Abd pain Pain Score (Numeric/FACES): 9 - Related Data Allergies Allergy/AdvReac Type Severity Reaction Status Date / Time No Known Allergies Allergy Verified 03/25/18 09:21 Home Meds: Home Meds traMADol [Ultram] 50 mg PO Q6H PRN 03/25/18 [History] Past Medical History - Past Health History Medical/Surgical History: Denies Medical/Surgical History Hematologic History: Reports: Anemia Social & Family History - Family History Family Medical History: Noncontributory - Caffeine Use Caffeine Use: Reports: None ED ROS GENERAL - Review of Systems Review Of Systems: ROS reveals no pertinent complaints other than HPI. ED EXAM, GENERAL - Physical Exam Exam: See Below (See dictation) Course - Vital Signs Last Recorded V/S: Last Vital Signs Temp 36.7 C 03/25/18 09:22 Pulse 79 03/25/18 09:22 Resp 16 03/25/18 09:22 BP 107/76 03/25/18 09:22 Pulse Ox 99 03/25/18 09:22 - Orders/Labs/Meds Orders: Active Orders 24 hr Category Date Time Status CULTURE URINE [RM] Stat Lab 03/25/18 09:29 Ordered UA W/MICROSCOPIC [URIN] Stat Lab 03/25/18 09:28 Ordered Labs: Laboratory Tests 03/25/18 03/25/18 03/25/18 Range/Units 09:43 09:43 09:43 WBC 4.71 (4.0-11.0) K/uL RBC 4.44 (4.30-5.90) M/uL Hgb 14.0 (12.0-16.0) g/dL Hct 41.6 (36.0-46.0) % MCV 93.7 (80.0-98.0) fL MCH 31.5 (27.0-32.0) pg MCHC 33.7 (31.0-37.0) g/dL RDW Std Deviation 44.9 (28.0-62.0) fl RDW Coeff of Shiva 13 (11.0-15.0) % Plt Count 138 L (150-400) K/uL MPV 10.20 (7.40-12.00) fL Neut % (Auto) 59.5 (48.0-80.0) % Lymph % (Auto) 34.0 (16.0-40.0) % [place] % (Auto) 5.5 (0.0-15.0) % Eos % (Auto) 0.8 (0.0-7.0) % Baso % (Auto) 0.2 (0.0-1.5) % Neut # (Auto) 2.8 (1.4-5.7) K/uL Lymph # (Auto) 1.6 (0.6-2.4) K/uL [place] # (Auto) 0.3 (0.0-0.8) K/uL Eos # (Auto) 0.0 (0.0-0.7) K/uL Baso # (Auto) 0.0 (0.0-0.1) K/uL Nucleated RBC % 0.0 /100WBC Nucleated RBCs # 0 K/uL Sodium 140 (136-145) mmol/L Potassium 3.7 (3.5-5.1) mmol/L Chloride 104 (98-107) mmol/L Carbon Dioxide 27.6 (21.0-32.0) mmol/L BUN 14 (7.0-18.0) mg/dL Creatinine 0.7 (0.6-1.0) mg/dL Est Cr Clr Drug Dosing 129.32 mL/min Estimated GFR (MDRD) > 60.0 ml/min Glucose 89 (74-106) mg/dL Calcium 8.7 (8.5-10.1) mg/dL Total Bilirubin 0.7 (0.2-1.0) mg/dL AST 12 L (15-37) IU/L ALT 16 (14-63) IU/L Alkaline Phosphatase 45 L (46-116) U/L Total Protein 7.6 (6.4-8.2) g/dL Albumin 4.3 (3.4-5.0) g/dL Globulin 3.3 (2.0-3.5) g/dL Albumin/Globulin Ratio 1.3 (1.3-2.8) HCG, Qual NEGATIVE (NEG) Meds: Medications Discontinued Medications Generic Name Dose Route Start Last Admin Trade Name Freq PRN Reason Stop Dose Admin Sodium Chloride 1,000 mls @ 999 mls/hr 03/25/18 09:29 03/25/18 09:45 Normal Saline IV 03/25/18 10:29 999 mls/hr STAT ONE Administration Ketorolac Tromethamine 30 mg 03/25/18 09:29 03/25/18 09:47 Toradol IVPUSH 03/25/18 09:30 30 mg ONETIME ONE Administration Departure - Departure Time of Disposition: 10:49 Disposition: Home, Self-Care 01 Condition: Good Clinical Impression: Dysmenorrhea Abdominal pain Qualifiers: Abdominal location: lower abdomen, unspecified Qualified Code(s): R10.30 - Lower abdominal pain, unspecified - Discharge Information *PRESCRIPTION DRUG MONITORING PROGRAM REVIEWED*: Not Applicable *COPY OF PRESCRIPTION DRUG MONITORING REPORT IN PATIENT SB: Not Applicable Referrals: PCP,None [Primary Care Provider] - Forms: ED Department Discharge Additional Instructions: The following information is given to patients seen in the emergency department who are being discharged to home. This information is to outline your options for follow-up care. We provide all patients seen in our emergency department with a follow-up referral. The need for follow-up, as well as the timing and circumstances, are variable depending upon the specifics of your emergency department visit. If you don't have a primary care physician on staff, we will provide you with a referral. We always advise you to contact your personal physician following an emergency department visit to inform them of the circumstance of the visit and for follow-up with them and/or the need for any referrals to a consulting specialist. The emergency department will also refer you to a specialist when appropriate. This referral assures that you have the opportunity for followup care with a specialist. All of these measure are taken in an effort to provide you with optimal care, which includes your followup. Under all circumstances we always encourage you to contact your private physician who remains a resource for coordinating your care. When calling for followup care, please make the office aware that this follow-up is from your recent emergency room visit. If for any reason you are refused follow-up, please contact the [facility] emergency department at and asked to speak to the emergency department charge nurse. Follow-up private medical doctor/TRAIN MASTER as scheduled return as needed as discussed Anaprox as prescribed - My Orders Last 24 Hours: My Active Orders 03/25/18 09:28 UA W/MICROSCOPIC [URIN] Stat 03/25/18 09:29 CULTURE URINE [RM] Stat - Assessment/Plan Last 24 Hours: My Active Orders 03/25/18 09:28 UA W/MICROSCOPIC [URIN] Stat 03/25/18 09:29 CULTURE URINE [RM] Stat
[2018-03-25 10:27] LABS: CHLORIDE,CL 104 mmol/L (98-107); SODIUM,NA 140 mmol/L (136-145)
--- NOTE | 2018-03-25 10:37 | US ---
EXAMINATION: Transabdominal pelvic ultrasound HISTORY: Pain COMPARISON: 01/01/2018 TECHNIQUE: Grayscale, color Doppler, and spectral Doppler imaging obtained transabdominally. FINDINGS: The uterus is normal in size, contour, and echogenicity without a focal uterine mass. Endom etrial stripe thickness measures 4 mm. There is a trace free pelvic fluid likely physiologic. The left ovary is mildly prominent at 4 x 2.4 x 3.5 cm and the right ovary measures 2.9 x 2.1 x 3.2 c m. No adnexal masses. Normal color and spectral Doppler flow bilaterally. The appendix is not visuali zed. IMPRESSION: 1. Grossly unremarkable uterus and ovaries. 2. The appendix is not visualized, likely secondary to a retrocecal location noted on a previous CT.
== END 2018-03-25 11:02 | disposition home or self-care (01) ==
LOC: MW.ED 09:12
DX: N94.6 Dysmenorrhea, unspecified (principal)
CPT/HCPCS: 36415; 76856; 80053; 84703; 85025; 96361; 96374; 99284; J1885; J7040; 99283